=== PATIENT | male | born 1940 | race Caucasian/White ===

== ENCOUNTER 2018-06-13 16:27 | Emergency (ER) | payer MEDICARE, OTHER ==
[2018-06-13 16:41] VITALS: TEMP 97.5
[2018-06-13 17:34] LABS: Basophils % (A) 0 %; Eosinophils % (A) 0 %; HCT 27.5 % (39.0-53.0); HGB 8.9 gm/dL (13.0-17.5); Lymphocytes # (A) 0.3 k/uL (1.0-4.8); Lymphocytes % (A) 3 %; MCH 32.8 pg (25.0-35.0); MCHC 32.3 g/dL (31.0-37.0); MCV 101.4 fL (80.0-100.0); Macrocytosis Slight; Mean Platelet Volume 7.9; Monocytes # (A) 0.2 k/uL (0-1.0); Monocytes % (A) 3 %; Neutrophils # (A) 7.9 k/uL (1.3-7.7); Neutrophils % (A) 93 %; Platelet Count 146 k/uL (150-450); RBC 2.72 m/uL (4.30-5.90); RDW 13.7 % (11.5-15.5); WBC 8.5 k/uL (3.8-10.6)
[2018-06-13 17:43] LABS: Albumin 4.3 g/dL (3.5-5.0); Calcium 9.1 mg/dL (8.4-10.2); Potassium 6.1 mmol/L (3.5-5.1); Total Bilirubin 0.7 mg/dL (0.2-1.3); Total Protein 6.9 g/dL (6.3-8.2)
[2018-06-13] MEDS ORDERED: METOCLOPRAMIDE 5 MG/ML 2 ML VIAL IVP STA (17:44)
[2018-06-13 17:53] LABS: Partial Thromboplastin Time 22.7 sec (22.0-30.0); Prothrombin Time 9.9 sec (9.0-12.0)
[2018-06-13 17:55] LABS: Troponin I 0.014 ng/mL (0.000-0.034)
[2018-06-13] MEDS ORDERED: ALBUTEROL NEB (CONC) 2.5 MG/0.5 ML INHALATION ONE (19:10)
[2018-06-13] MEDS ORDERED: INSULIN REGULAR 100 UNIT/ML VIAL IV ONE (19:10)
[2018-06-13] MEDS ORDERED: DEXTROSE 50%-WATER 50 ML SYRINGE IVP ONE (19:10)
--- NOTE | 2018-06-13 19:29 | XR ---
EXAMINATION TYPE: XR chest 2V DATE OF EXAM: 06/13/2018 COMPARISON: Chest x-ray from June 04, 2016.CT chest June 01, 2016. HISTORY: Weakness. TECHNIQUE: Frontal and lateral views of the chest are obtained. FINDINGS: Old fracture left humeral head level is partially imaged. There is redemonstration of card iomegaly with dual lead pacemaker and atherosclerotic thoracic aorta. There is chronic parenchymal ch deven without suspicious focal airspace opacity, pleural effusion, or pneumothorax seen bilaterally on current study. Chronic compression fracture felt present roughly L1 level on lateral view. IMPRESSION: Chronic changes and cardiomegaly without acute pulmonary process.
--- NOTE | 2018-06-13 19:37 | CT ---
EXAMINATION TYPE: CT abdomen pelvis wo con DATE OF EXAM: 06/13/2018 HISTORY: Generalized pain with nausea CT DLP: 275.4 mGycm. Automated Exposure Control for Dose Reduction was Utilized. TECHNIQUE: CT scan of the abdomen and pelvis is performed without oral or IV contrast. COMPARISON: NONE FINDINGS: Within the limitations of a non-contrast study, the following observations are made. LUNG BASES: There are trace right greater than left pleural effusions. There is cardiomegaly with rig ht-sided pacemaker. There is trace pericardial effusion. LIVER/GB: No significant abnormality is appreciated. PANCREAS: No significant abnormality is seen. SPLEEN: No significant abnormality is seen. ADRENALS: No significant abnormality is seen. KIDNEYS: There is some cortical thinning in both kidneys. Central vascular calcification is present b ilaterally. There is mild right-sided hydronephrosis. No obstructing calculi are clearly seen. Bladde r is mildly distended. BOWEL: Evaluation bowel is suboptimal secondary to lack of enteric contrast. There is no suspicious d ilatation of the stomach. Majority of small bowel shows no suspicious dilatation. There is mild wall thickening in the right colon extending into the proximal transverse colon there is mild wall thicken ing in the sigmoid colon. There are few scattered diverticula in the sigmoid colon appendix is gas-fi lled and not dilated. There is mild ill-defined fluid throughout the mesentery including the paracoli c gutters with similar some mild fluid surrounding the appendix GENITAL ORGANS: Suboptimal evaluation prostate gland due to streak artifact from adjacent hips. LYMPH NODES: No greater than 1cm abdominal or pelvic lymph nodes are appreciated. OSSEOUS STRUCTURES: Metallic hardware from bilateral proximal femur surgery is identified causing str eak artifact limiting evaluation of pelvic structures. Osseous structures are demineralized there is moderate compression fracture at T12 level with sclerosis presumed chronic. Moderate compression frac ture L2 level is noted. There is advanced compression fracture L3 level with vertebroplasty. There is mild to moderate inferior compression fracture L5 level. There is mild compression fracture L1 level OTHER: There is severe vascular calcification of smaller vessels including prominent vascular calcifi cation of groin vessels. IMPRESSION: No bowel obstruction. Mild diffuse abdominal and mesenteric ascites of uncertain etiology . No well-formed fluid collection is seen. Possible multifocal colitis, correlate clinically. Subopti mal evaluation without enteric contrast. Mild right-sided hydronephrosis of uncertain etiology as no obstructing calculus is clearly seen. Multiple chronic compression fractures noted.
[2018-06-13 19:46] VITALS: PULSE 61; RESP 17
[2018-06-13] MEDS ORDERED: LABETALOL 5 MG/ML VIAL MDV IVP STA (19:58)
[2018-06-13 20:03] LABS: Appearance,Urine Clear (Clear); Bilirubin,Urine Negative (Negative); Blood,Urine Trace (Negative); Color,Urine Light Yellow; Glucose,Urine (UA) 4+ (Negative); Ketones,Urine Trace (Negative); Leukocyte Esterase,Urine Negative (Negative); Nitrite,Urine Negative (Negative); Protein,Urine 2+ (Negative); RBC,Urine <1 /hpf (0-5); Specific Gravity,Urine 1.009 (1.001-1.035); Squamous Epithelial Cell,Urine <1 /hpf (0-4); Urobilinogen,Urine <2.0 mg/dL (<2.0); WBC,Urine 1 /hpf (0-5)
[2018-06-13 21:20] LABS: Glucose,Whole Blood 295 mg/dL (75-99)
[2018-06-13 21:25] VITALS: BP 195/79
--- NOTE | 2018-06-13 21:33 | ED ---
General Adult HPI - General Chief complaint: Weakness Stated complaint: NVD, STATES RENAL FAILURE Source: patient Mode of arrival: wheelchair Limitations: no limitations - History of Present Illness Initial comments: Dictation was produced using [employer] dictation software. please excuse any grammatical, word or spelling errors. Chief Complaint: 77-year-old male chronic kidney disease, arrhythmia presents with generalized weakness. 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 He states that he gets most of his medical care [place]. He bounces back between here and [place] for his personal life. Patient states that over the past couple days he has been having nausea. Denies any vomiting. This date he has some abdominal cramping. Patient has a history of diabetes. He has been compliant with his medications. Patient has a operating right upper extremity AV fistula that is placed in anticipation for future and imminent dialysis. Denies any constitutional symptoms. Denies any pain in his flank or his back The ROS documented in this emergency department record has been reviewed and confirmed by me. Those systems with pertinent positive or negative responses have been documented in the HPI. All other systems are other negative and/or noncontributory. - Related Data Home Medications Medication Instructions Recorded Confirmed Amiodarone [Cordarone] 200 mg PO DAILY 05/10/16 06/13/18 Atorvastatin [Lipitor] 10 mg PO HS 05/10/16 06/13/18 Cholecalciferol [Vitamin D3] 2,000 unit PO BID 05/10/16 06/13/18 Florastor Probiotic 250 mg PO DAILY 05/10/16 06/13/18 Linagliptin [Tradjenta] 5 mg PO DAILY 05/10/16 06/13/18 NIFEdipine XL [Procardia XL] 30 mg PO DAILY 05/10/16 06/13/18 Sodium Bicarbonate Tab 650 mg PO DAILY 05/10/16 06/13/18 Denosumab [Prolia] 60 mg SQ Q180D 06/13/18 06/13/18 Docusate [Colace] 100 mg PO DAILY 06/13/18 06/13/18 Glimepiride [Amaryl] 4 mg PO BID 06/13/18 06/13/18 Labetalol HCl 100 mg PO BID 06/13/18 06/13/18 Levothyroxine Sodium [Synthroid] 125 mcg PO DAILY 06/13/18 06/13/18 traMADol HCL [Ultram] 50 mg PO Q6HR PRN 06/13/18 06/13/18 Previous Rx's Medication Instructions Recorded Aspirin 162 mg PO DAILY #0 chew 06/04/16 Metoclopramide HCl [Reglan] 10 mg PO BID PRN #12 tablet 06/13/18 Allergies Allergy/AdvReac Type Severity Reaction Status Date / Time No Known Allergies Allergy Verified 06/13/18 16:54 Review of Systems ROS Statement: Those systems with pertinent positive or pertinent negative responses have been documented in the HPI. ROS Other: All systems not noted in ROS Statement are negative. 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, RT EYE MAC DEGENERATION, CEREBRAL BLEED 2011, LT LEG A BIT WEAKER THAN RT AND PROBLEM W/ SPACE PERCEPTION, SHINGLES 2001,CONSTIPATION D/T PAIN MEDS; Dupuytren 's contracture on the right fifth digit; right inguinal hernia repair as a child ; right knee arthroscopy Last Myocardial Infarction Date:: No history of myocardial infarction History of Any Multi-Drug Resistant Organisms: None Reported Past Surgical History: Pacemaker Additional Past Surgical History / Comment(s): fistula, ALVARO CATARACTS, ORIF RT HIP, LT HIP ORIG/PLATE, LT FOOT 2ND TOE AMP secondary to MSSA sepsis,Dupuytren' s CONTRACTURE SX left, RT INGUINAL HERNUA Additional Past Anesthesia/Blood Transfusion Reaction / Comment(s): BLOOD TRANSFUSION- Type of Cardiac Device: Permanent Pacemaker Device Placement Date:: Past Psychological History: No Psychological Hx Reported Smoking Status: Never smoker Past Alcohol Use History: Daily Past Drug Use History: None Reported - Past Family History Father Family Medical History: Pneumonia Mother Family Medical History: No Reported History Additional Family Medical History / Comment(s): CEREBRAL HEMORRAGE General Exam - General Exam Comments Initial Comments: PHYSICAL EXAM: General Impression: Alert and oriented x3, not in acute distress HEENT: Normocephalic atraumatic, extra-ocular movements intact, pupils equal and reactive to light bilaterally, dry mucous members Cardiovascular: Heart regular rate and rhythm, S1&S2 audible, no murmurs, rubs or gallops Chest: Lungs clear to auscultation bilaterally, no rhonchi, no wheeze, no rales Abdomen: Bowel sounds present, abdomen soft, non-tender, non-distended, no organomegaly Musculoskeletal: Pulses present and equal in all extremities, no peripheral edema, right upper extremity AV fistula with palpable thrill and audible bruit Motor: Power 5/5 bilaterally, no focal deficits noted Neurological: CN II-XII grossly intact, no focal motor or sensory deficits noted Skin: Intact with no visualized rashes Psych: Normal affect and mood Limitations: no limitations Course Vital Signs 06/13/18 06/13/18 06/13/18 16:37 17:14 17:37 Temperature 97.5 F L Pulse Rate 65 91 Pulse Rate [ 61 Composition Teacher ] Respiratory 18 18 Rate Blood Pressure 165/62 170/90 O2 Sat by Pulse 98 Oximetry 06/13/18 06/13/18 06/13/18 18:48 19:45 20:07 Temperature Pulse Rate 60 61 Pulse Rate [ Composition Teacher ] Respiratory 18 17 Rate Blood Pressure 212/86 199/79 200/82 O2 Sat by Pulse 93 L 96 Oximetry 06/13/18 21:24 Temperature Pulse Rate Pulse Rate [ Composition Teacher ] Respiratory Rate Blood Pressure 195/79 O2 Sat by Pulse Oximetry Medical Decision Making - Medical Decision Making ED course: 77-year-old male with chief complaint of generalized weakness. Initial vital signs showed blood pressure of 212/86. Laboratory evaluation obtained. Hemoglobin 8.9. Which is near his baseline. Denies any GI bleeding. CBC is unremarkable coag panel is negative. Metabolic panel shows creatinine of 4.3. This is mildly elevated compared to previous creatinine levels approximately 1 year ago where his level was 3.4. He also does have elevation in his blood urea nitrogen. Potassium initially was 6.1. Cardiac enzymes are negative. Urinalysis shows 4+ glucose and trace ketones. There is no anion gap and there is mild bicarb elevation. Chest x-ray shows chronic changes without acute processes. Computed tomography scan of the abdomen and pelvis showed mild mesenteric ascites of unknown etiology, multifocal colitis, mild right-sided hydronephrosis without obstructing calculus. Patient given hyperkalemia cocktail. There is no discernible hyperkalemia changes on EKG. Patient had repeat potassium check which is found to be 5.3. Patient was adamant about being discharged from the emergency department. He was adamant about refusing admission for further care. At this point is unclear what is causing his nausea. There is findings of acute kidney injury suspicion with elevated renal markers and hyperkalemia. There is also some suspicion that patient's symptoms may represent mild diabetic ketoacidosis. Patient is given intravenous fluids and antinausea medications. There is also some click suspicion that patient had recently passed nonobstructed kidney stone given findings of hydronephrosis on the right. Discussed with patient that if he wants to be discharge that he should return to the emergency department if he expense any worsening symptoms. Patient given labetalol for elevated blood pressure. Patient has a history of hypertension and he missed his labetalol dose. Discussed with patient that he should follow-up with his primary care physician as soon as possible. Discussed patient that he is likely needing urgent hemodialysis soon. Patient is understandable and agreeable to plan. He is given prescription for Reglan. EKG Interpretation: A 12 lead EKG was obtained. It was interpreted by myself and attending physician. There is a P wave before every QRS complex. Rate is 61. Rhythm is H or paced rhythm, ID interval 2:30, QS 110, QTc 537. QT is not prolonged. No ST segment depression or elevation. - Lab Data Result diagrams: 06/13/18 17:01 06/13/18 21:06 Lab Results 06/13/18 06/13/18 06/13/18 Range/Units 17:01 17:01 17:01 WBC 8.5 (3.8-10.6) k/uL RBC 2.72 L (4.30-5.90) m/uL Hgb 8.9 L (13.0-17.5) gm/dL Hct 27.5 L (39.0-53.0) % MCV 101.4 H (80.0-100.0) fL MCH 32.8 (25.0-35.0) pg MCHC 32.3 (31.0-37.0) g/dL RDW 13.7 (11.5-15.5) % Plt Count 146 L (150-450) k/uL Neutrophils % 93 % Lymphocytes % 3 % Monocytes % 3 % Eosinophils % 0 % Basophils % 0 % Neutrophils # 7.9 H (1.3-7.7) k/uL Lymphocytes # 0.3 L (1.0-4.8) k/uL Monocytes # 0.2 (0-1.0) k/uL Eosinophils # 0.0 (0-0.7) k/uL Basophils # 0.0 (0-0.2) k/uL Macrocytosis Slight PT (9.0-12.0) sec INR (<1.2) APTT (22.0-30.0) sec Sodium 141 (137-145) mmol/L Potassium 6.1 H (3.5-5.1) mmol/L Chloride 108 H (98-107) mmol/L Carbon Dioxide 21 L (22-30) mmol/L Anion Gap 12 mmol/L BUN 56 H (9-20) mg/dL Creatinine 4.30 H (0.66-1.25) mg/dL Est GFR (CKD-EPI)AfAm 15 (>60 ml/min/1.73 sqM) Est GFR (CKD-EPI)NonAf 13 (>60 ml/min/1.73 sqM) Glucose 297 H (74-99) mg/dL POC Glucose (mg/dL) (75-99) mg/dL POC Glu Stereo Equipment Repairer ID Plasma Lactic Acid Rishabh (0.7-2.0) mmol/L Calcium 9.1 (8.4-10.2) mg/dL Total Bilirubin 0.7 (0.2-1.3) mg/dL AST 25 (17-59) U/L ALT 38 (21-72) U/L Alkaline Phosphatase 87 (38-126) U/L Total Creatine Kinase 132 (55-170) U/L CK-MB (CK-2) 3.0 H* (0.0-2.4) ng/mL CK-MB (CK-2) Rel Index 2.3 Troponin I 0.014 (0.000-0.034) ng/mL Total Protein 6.9 (6.3-8.2) g/dL Albumin 4.3 (3.5-5.0) g/dL Urine Color Urine Appearance (Clear) Urine pH (5.0-8.0) Ur Specific [place] (1.001-1.035) Urine Protein (Negative) Urine Glucose (UA) (Negative) Urine Ketones (Negative) Urine Blood (Negative) Urine Nitrite (Negative) Urine Bilirubin (Negative) Urine Urobilinogen (<2.0) mg/dL Ur Leukocyte Esterase (Negative) Urine RBC (0-5) /hpf Urine WBC (0-5) /hpf Ur Squamous Epith Cells (0-4) /hpf 06/13/18 06/13/18 06/13/18 Range/Units 17:01 17:01 18:00 WBC (3.8-10.6) k/uL RBC (4.30-5.90) m/uL Hgb (13.0-17.5) gm/dL Hct (39.0-53.0) % MCV (80.0-100.0) fL MCH (25.0-35.0) pg MCHC (31.0-37.0) g/dL RDW (11.5-15.5) % Plt Count (150-450) k/uL Neutrophils % % Lymphocytes % % Monocytes % % Eosinophils % % Basophils % % Neutrophils # (1.3-7.7) k/uL Lymphocytes # (1.0-4.8) k/uL Monocytes # (0-1.0) k/uL Eosinophils # (0-0.7) k/uL Basophils # (0-0.2) k/uL Macrocytosis PT 9.9 (9.0-12.0) sec INR 1.0 (<1.2) APTT 22.7 (22.0-30.0) sec Sodium (137-145) mmol/L Potassium (3.5-5.1) mmol/L Chloride (98-107) mmol/L Carbon Dioxide (22-30) mmol/L Anion Gap mmol/L BUN (9-20) mg/dL Creatinine (0.66-1.25) mg/dL Est GFR (CKD-EPI)AfAm (>60 ml/min/1.73 sqM) Est GFR (CKD-EPI)NonAf (>60 ml/min/1.73 sqM) Glucose (74-99) mg/dL POC Glucose (mg/dL) (75-99) mg/dL POC Glu Stereo Equipment Repairer ID Plasma Lactic Acid Rishabh 0.8 (0.7-2.0) mmol/L Calcium (8.4-10.2) mg/dL Total Bilirubin (0.2-1.3) mg/dL AST (17-59) U/L ALT (21-72) U/L Alkaline Phosphatase (38-126) U/L Total Creatine Kinase (55-170) U/L CK-MB (CK-2) (0.0-2.4) ng/mL CK-MB (CK-2) Rel Index Troponin I (0.000-0.034) ng/mL Total Protein (6.3-8.2) g/dL Albumin (3.5-5.0) g/dL Urine Color Light Yellow Urine Appearance Clear (Clear) Urine pH 7.0 (5.0-8.0) Ur Specific [place] 1.009 (1.001-1.035) Urine Protein 2+ H (Negative) Urine Glucose (UA) 4+ H (Negative) Urine Ketones Trace H (Negative) Urine Blood Trace H (Negative) Urine Nitrite Negative (Negative) Urine Bilirubin Negative (Negative) Urine Urobilinogen <2.0 (<2.0) mg/dL Ur Leukocyte Esterase Negative (Negative) Urine RBC <1 (0-5) /hpf Urine WBC 1 (0-5) /hpf Ur Squamous Epith Cells <1 (0-4) /hpf 06/13/18 06/13/18 Range/Units 21:05 21:06 WBC (3.8-10.6) k/uL RBC (4.30-5.90) m/uL Hgb (13.0-17.5) gm/dL Hct (39.0-53.0) % MCV (80.0-100.0) fL MCH (25.0-35.0) pg MCHC (31.0-37.0) g/dL RDW (11.5-15.5) % Plt Count (150-450) k/uL Neutrophils % % Lymphocytes % % Monocytes % % Eosinophils % % Basophils % % Neutrophils # (1.3-7.7) k/uL Lymphocytes # (1.0-4.8) k/uL Monocytes # (0-1.0) k/uL Eosinophils # (0-0.7) k/uL Basophils # (0-0.2) k/uL Macrocytosis PT (9.0-12.0) sec INR (<1.2) APTT (22.0-30.0) sec Sodium (137-145) mmol/L Potassium 5.3 H (3.5-5.1) mmol/L Chloride (98-107) mmol/L Carbon Dioxide (22-30) mmol/L Anion Gap mmol/L BUN (9-20) mg/dL Creatinine (0.66-1.25) mg/dL Est GFR (CKD-EPI)AfAm (>60 ml/min/1.73 sqM) Est GFR (CKD-EPI)NonAf (>60 ml/min/1.73 sqM) Glucose (74-99) mg/dL POC Glucose (mg/dL) 295 H (75-99) mg/dL POC Glu Stereo Equipment Repairer TARSHA Ashley Camargo Plasma Lactic Acid Rishabh (0.7-2.0) mmol/L Calcium (8.4-10.2) mg/dL Total Bilirubin (0.2-1.3) mg/dL AST (17-59) U/L ALT (21-72) U/L Alkaline Phosphatase (38-126) U/L Total Creatine Kinase (55-170) U/L CK-MB (CK-2) (0.0-2.4) ng/mL CK-MB (CK-2) Rel Index Troponin I (0.000-0.034) ng/mL Total Protein (6.3-8.2) g/dL Albumin (3.5-5.0) g/dL Urine Color Urine Appearance (Clear) Urine pH (5.0-8.0) Ur Specific [place] (1.001-1.035) Urine Protein (Negative) Urine Glucose (UA) (Negative) Urine Ketones (Negative) Urine Blood (Negative) Urine Nitrite (Negative) Urine Bilirubin (Negative) Urine Urobilinogen (<2.0) mg/dL Ur Leukocyte Esterase (Negative) Urine RBC (0-5) /hpf Urine WBC (0-5) /hpf Ur Squamous Epith Cells (0-4) /hpf Disposition Clinical Impression: Weakness Disposition: HOME SELF-CARE Condition: Fair Instructions: Hyperkalemia (ED) Prescriptions: Metoclopramide HCl [Reglan] 10 mg PO BID PRN #12 tablet PRN Reason: Nausea Is patient prescribed a controlled substance at d/c from ED?: No Referrals: Jaden Nieto MD [Primary Care Provider] - 1-2 days Time of Disposition: 21:33
== END 2018-06-13 21:42 | disposition home or self-care (01) ==
LOC: EC 16:27
DX: R53.1 Weakness (principal); R11.0 Nausea; R18.8 Other ascites; K52.9 Noninfective gastroenteritis and colitis, unspecified; N13.30 Unspecified hydronephrosis; R94.4 Abnormal results of kidney function studies; E07.9 Disorder of thyroid, unspecified; N17.9 Acute kidney failure, unspecified; E87.5 Hyperkalemia; I12.9 Hypertensive chronic kidney disease with stage 1 through stage 4 chronic kidney disease, or unspecified chronic kidney disease; E11.22 Type 2 diabetes mellitus with diabetic chronic kidney disease; N18.9 Chronic kidney disease, unspecified; Z86.73 Personal history of transient ischemic attack (TIA), and cerebral infarction without residual deficits; Z79.84 Long term (current) use of oral hypoglycemic drugs; Z79.899 Other long term (current) drug therapy; Z95.0 Presence of cardiac pacemaker; Z53.8 Procedure and treatment not carried out for other reasons
CPT/HCPCS: 99285; 96374; 96375; 36415; 93005; 80053; 82550; 82553; 83605; 84132; 84484; 85025; 85610; 85730; 81001; 71046; 74176; J2765